=== PATIENT | male | born 1975 | race Caucasian/White ===

== ENCOUNTER 2017-02-20 19:48 | Emergency (ER) | payer OTHER ==
[~2017-02-20] VITALS: Ht 177.8 cm; Wt 117.9 kg
[~2017-02-20 19:48] MED LIST: AMOXICILLIN500 MG PO; CATAFLAM50 MG PO; CYCLOBENZAPRINE10 MG PO; FLONASE 0.05% 121 EA NAS; HYDROCODONE BIT1 T11 PO; KEFLEX500 MG PO; Motrin,Rufen800 MG PO; NKHM; NKHM PO; NYQUIL; VIBRAMYCIN100 MG PO
[2017-02-20 20:07] VITALS: BP 154/83
[2017-02-20] MEDS ORDERED: Orphenadrine C100 MG PO (22:19)
[2017-02-20] MEDS ORDERED: Motrin,Rufen800 MG PO (22:19)
[2017-02-20] MEDS ORDERED: NORCO 5-325 TA1 EACH PO (22:19)
== END 2017-02-20 22:32 | disposition home or self-care (01) ==
LOC: ED 19:48
DX: S01.312A Laceration without foreign body of left ear, initial encounter (principal); S01.01XA Laceration without foreign body of scalp, initial encounter; W55.12XA Struck by horse, initial encounter; Y93.89 Activity, other specified; Y92.89 Other specified places as the place of occurrence of the external cause; Y99.9 Unspecified external cause status

== ENCOUNTER 2017-02-28 16:46 | Emergency (ER) | payer OTHER ==
[~2017-02-28] VITALS: Wt 117.9 kg
[~2017-02-28 16:46] MED LIST changes: +NORCO 5-325 TA1 EACH PO; +Orphenadrine C100 MG PO
[2017-02-28 16:55] VITALS: BP 136/68
== END 2017-02-28 17:10 | disposition home or self-care (01) ==
LOC: ED 16:46
DX: S01.01XD Laceration without foreign body of scalp, subsequent encounter (principal); Z48.02 Encounter for removal of sutures; X58.XXXD Exposure to other specified factors, subsequent encounter; Y92.9 Unspecified place or not applicable; Y99.9 Unspecified external cause status

== ENCOUNTER 2017-03-07 11:32 | Inpatient (IN) | payer OTHER ==
[~2017-03-07] VITALS: Ht 175.2 cm; Wt 113.9 kg
--- NOTE | ~2017-03-07 | O ---
[place], [place] OPERATIVE NOTE NAME: THIERRY MONTEZ JR [facility] #: [id number] UNIT #: [id number] ROOM: [facility] DOCTOR: BOONE CLAY MD BIRTHDATE: [birth year] DOS: 03/08/2017 PREOPERATIVE DIAGNOSIS: Acute appendicitis. POSTOPERATIVE DIAGNOSIS: Acute appendicitis. PROCEDURE: Laparoscopic appendectomy. SURGEON: Boone Clay MD CRAP SHOOTER: PGY1. ANESTHESIA: General with endotracheal intubation. INDICATIONS: This is a 41-year-old gentleman who was admitted with a history of right lower quadrant abdominal pain, nausea, vomiting and diarrhea, who was found to have acute appendicitis with appendicolith on a CAT scan. It was decided to take the patient to the operating room for the above-mentioned procedure. The procedure and its complications were explained to the patient in detail preoperatively. Complications that were discussed included, but were not limited to bleeding, infection, hematoma/seroma/abscess formation, prolonged postoperative pain, damage to vital structures, incisional hernia formation. He agreed to proceed. DESCRIPTION OF PROCEDURE: After identifying the patient, the patient was brought to the operating suite and laid in the supine position. After induction of general anesthesia, timeout procedure was called and a Pacheco catheter was placed. The left upper extremity was stuck to the patient in size, the parts were then painted and draped in the usual sterile fashion. An incision inferior to the umbilicus was made. The previous scar for a laparoscopic cholecystectomy was reused to get access into the abdomen. The fascia was incised and 2 stay sutures were taken on either side with 0 Vicryl. The peritoneum was opened and a 12 mm Valerie port was introduced. The patient was then placed in a Trendelenburg right side up position. Under direct vision, a left lower quadrant incision of 10 mm in the suprapubic incision of 5 mm . was made and appropriate size ports were introduced. The appendix was found to be in the post-ileal retrocecal position and was surrounded by the inflammatory adhesions, which were taken down with blunt and sharp dissection. Thereafter, the tape of the appendix was held up with the help of an Endo-Napoleon forceps and the base of the appendix as well as mesoappendix was stapled across with the help of a JONN vascular stapler. The appendix was then placed in an EndoCatch bag and removed from the peritoneal cavity and sent for histopathological diagnosis. Thereafter, hemostasis was confirmed and the spilled blood was sucked away. Under direct vision, the suprapubic and the left lower quadrant ports were removed and there was no bleeding seen. The umbilical port was also removed and the stay sutures were tied together as well as another stitch with 0 Vicryl was taken to close the fascial defect. Thereafter, the subcutaneous tissue was irrigated and the skin edges were approximated with the help of 4-0 Vicryl after they were infiltrated with 1% plain lidocaine. A dressing was placed. The patient tolerated the procedure well. Pacheco catheter was removed. He was [place], [place] OPERATIVE NOTE NAME: TC THIERRY HERRERA UNIT #: [id number] ROOM: [facility] DOCTOR: BOONE CLAY MD BIRTHDATE: [birth year] extubated uneventfully and brought back to the recovery room in stable fashion. There were no complications. Dr. Boone Clay, the attending surgeon, was present throughout the operating case. Boone Clay MD CM:OPRECORD:OPERATIVE NOTE [id number] BOONE CLAY MD 03/08/17 1136 interface
[2017-03-07 11:37] VITALS: BP 130/80
[2017-03-07 12:23] LABS: BASO % 0.2 % (0.0-1.0); EOS # 0.1 10*3/uL (0.0-0.4); EOS % 0.7 % (1.0-4.0); HEMATOCRIT 43.9 % (42.0-52.0); HEMOGLOBIN 15.2 g/dl (14.0-18.0); LYMPH # 0.9 10*3/uL (1.3-4.4); LYMPH % 7.1 % (27.0-41.0); MEAN CELL VOLUME 82.4 fl (80.0-94.0); MEAN CORPUSCULAR HGB 28.5 pg (27.0-31.0); MEAN CORPUSCULAR HGB CONC 34.6 g/dl (33.0-37.0); MEAN PLATELET VOLUME 9.3 fl (9.6-12.3); MONO # 0.7 10*3/uL (0.1-1.0); MONO % 6.1 % (3.0-9.0); NEUT # 10.3 10*3/uL (2.3-7.9); NEUT % 85.6 % (47.0-73.0); PLATELET COUNT AUTOMATED 247 10*3/uL (130-400); RED BLOOD COUNT 5.33 10*6/uL (4.50-5.90); RED CELL DISTRI WIDTH 13.2 % (0-14.5)
[2017-03-07 12:40] LABS: ALBUMIN 3.7 gm/dl (3.1-4.5); ALKALINE PHOSPHATASE 95 U/L (45-117); BILIRUBIN, TOTAL 0.7 mg/dl (0.2-1.0); BUN 27 mg/dl (7-24); CARBON DIOXIDE 21 mmol/L (21-32); CHLORIDE 109 mmol/L (98-107); EST GLOM FILT AFRICAN AMERICAN > 60 ml/min; GLUCOSE 109 mg/dL (65-99); POTASSIUM 3.9 mmol/L (3.5-5.1); SGOT/AST 27 IU/L (3-35); SGPT/ALT 33 U/L (12-78); SODIUM 143 mmol/L (136-145); TOTAL PROTEIN 7.8 gm/dL (6.4-8.2)
[2017-03-07 17:25] VITALS: BP 120/60
[2017-03-07 20:00] VITALS: BP 114/52
[2017-03-08] VITALS (13 sets, daily range): BP systolic 90–132; BP diastolic 43–78
[2017-03-08 06:53] LABS: BASO % 0.6 % (0.0-1.0); EOS # 0.2 10*3/uL (0.0-0.4); EOS % 3.1 % (1.0-4.0); HEMATOCRIT 38.1 % (42.0-52.0); HEMOGLOBIN 13.2 g/dl (14.0-18.0); LYMPH # 1.2 10*3/uL (1.3-4.4); LYMPH % 24.1 % (27.0-41.0); MEAN CELL VOLUME 83.7 fl (80.0-94.0); MEAN CORPUSCULAR HGB CONC 34.6 g/dl (33.0-37.0); MEAN PLATELET VOLUME 8.9 fl (9.6-12.3); MONO # 0.7 10*3/uL (0.1-1.0); MONO % 12.8 % (3.0-9.0); NEUT % 59.2 % (47.0-73.0); PLATELET COUNT AUTOMATED 185 10*3/uL (130-400); RED BLOOD COUNT 4.55 10*6/uL (4.50-5.90); RED CELL DISTRI WIDTH 13.2 % (0-14.5); WHITE BLOOD COUNT 5.1 10*3/uL (4.8-10.8)
[2017-03-08 07:25] LABS: PROTHROMBIN TIME 10.5 SECONDS (9.0-12.4)
[2017-03-08 07:28] LABS: ALKALINE PHOSPHATASE 88 U/L (45-117); BILIRUBIN, TOTAL 0.8 mg/dl (0.2-1.0); BUN 20 mg/dl (7-24); CARBON DIOXIDE 26 mmol/L (21-32); CHLORIDE 112 mmol/L (98-107); CHOLESTEROL 63 mg/dL (<200); EST GLOM FILT AFRICAN AMERICAN > 60 ml/min; FREE T4 1.15 ng/dl (0.76-1.46); GLUCOSE 92 mg/dL (65-99); HDL CHOLESTEROL 35 mg/dl (40-60); LDL CHOLESTEROL 19 mg/dL (9-159); MAGNESIUM 2.2 mg/dL (1.5-2.1); PHOSPHOROUS 2.1 mg/dL (2.5-4.9); POTASSIUM 3.7 mmol/L (3.5-5.1); SGOT/AST 23 IU/L (3-35); SGPT/ALT 33 U/L (12-78); SODIUM 145 mmol/L (136-145); TOTAL PROTEIN 6.3 gm/dL (6.4-8.2); TRIGLYCERIDES 43 mg/dl (<150); VLDL CHOLESTEROL 9 mg/dL (6-40)
[2017-03-08 07:33] LABS: THYROID STIM HORMONE (HS) 0.713 uIU/ml (0.358-4.75)
[2017-03-08 09:55] LABS: FOLIC ACID 23.6 ng/mL (>5.38)
[2017-03-08 09:56] LABS: VITAMIN D, 25-HYDROXY 17.7 ng/mL (30-100)
[2017-03-09] VITALS: BP 115/51
[2017-03-09 06:31] LABS: BASO % 0.1 % (0.0-1.0); HEMOGLOBIN 12.8 g/dl (14.0-18.0); IG # 0.1 10*3/uL (0.0-0.1); LYMPH # 1.1 10*3/uL (1.3-4.4); LYMPH % 7.8 % (27.0-41.0); MEAN CELL VOLUME 83.1 fl (80.0-94.0); MEAN CORPUSCULAR HGB 28.8 pg (27.0-31.0); MEAN CORPUSCULAR HGB CONC 34.6 g/dl (33.0-37.0); MONO # 1.1 10*3/uL (0.1-1.0); MONO % 7.4 % (3.0-9.0); NEUT # 12.4 10*3/uL (2.3-7.9); NEUT % 84.2 % (47.0-73.0); PLATELET COUNT AUTOMATED 240 10*3/uL (130-400); RED BLOOD COUNT 4.45 10*6/uL (4.50-5.90); RED CELL DISTRI WIDTH 13.2 % (0-14.5); WHITE BLOOD COUNT 14.7 10*3/uL (4.8-10.8)
[2017-03-09 07:12] LABS: BUN 17 mg/dl (7-24); CARBON DIOXIDE 23 mmol/L (21-32); CHLORIDE 113 mmol/L (98-107); EST GLOM FILT AFRICAN AMERICAN > 60 ml/min; GLUCOSE 140 mg/dL (65-99); PHOSPHOROUS 1.6 mg/dL (2.5-4.9); POTASSIUM 3.8 mmol/L (3.5-5.1); SODIUM 146 mmol/L (136-145)
[2017-03-09 08:00] VITALS: BP 111/54
== END 2017-03-09 13:13 | disposition home or self-care (01) | DRG 342 ==
LOC: ED 11:32 → EDHOLD 15:43 → 5E 15:43
PROVIDERS: Internal Medicine; Registered Nurse
PROC: 0DTJ4ZZ Resection of Appendix, Percutaneous Endoscopic Approach (ICD-10-PCS; principal; 2017-03-08)
DX: K35.80 Unspecified acute appendicitis (principal); E44.0 Moderate protein-calorie malnutrition; E87.8 Other disorders of electrolyte and fluid balance, not elsewhere classified; E83.39 Other disorders of phosphorus metabolism; Z82.49 Family history of ischemic heart disease and other diseases of the circulatory system; D72.829 Elevated white blood cell count, unspecified; E66.9 Obesity, unspecified; Z68.39 Body mass index [BMI] 39.0-39.9, adult

== ENCOUNTER → 2017-03-20 | Outpatient (CLI) | payer OTHER ==
[2017-03-20 13:08] LABS: BILIRUBIN NEGATIVE (NEGATIVE); BLOOD NEGATIVE (NEGATIVE); CLARITY CLEAR (CLEAR); COLOR YELLOW (YELLOW); GLUCOSE NEGATIVE (NEGATIVE); KETONE NEGATIVE (NEGATIVE); LEUKO ESTERASE NEGATIVE (NEGATIVE); NITRITE NEGATIVE (NEGATIVE); PROTEIN NEGATIVE (NEGATIVE); SPECIFIC GRAVITY >= 1.030 (1.005-1.030); UROBILINOGEN 0.2 E.U./dl (0.2-1.0)
[2017-03-20 13:43] LABS: BACTERIA 2+; URINE REFLEX COMMENT YES (NO)
== END | disposition home or self-care (01) ==
LOC: LAB 12:35
PROVIDERS: Surgery
DX: R39.9 Unspecified symptoms and signs involving the genitourinary system (principal)

== ENCOUNTER 2017-09-19 08:16 | Emergency (ER) | payer OTHER ==
[~2017-09-19] VITALS: Ht 177.8 cm; Wt 117.9 kg
[2017-09-19 08:36] VITALS: BP 138/69
[2017-09-19 09:23] LABS: BASO # 0.1 10*3/uL (0.0-0.1); BASO % 0.8 % (0.0-1.0); EOS # 0.2 10*3/uL (0.0-0.4); EOS % 2.3 % (1.0-4.0); HEMATOCRIT 42.9 % (42.0-52.0); HEMOGLOBIN 14.8 g/dl (14.0-18.0); LYMPH # 1.6 10*3/uL (1.3-4.4); LYMPH % 22.6 % (27.0-41.0); MEAN CORPUSCULAR HGB 28.3 pg (27.0-31.0); MEAN CORPUSCULAR HGB CONC 34.5 g/dl (33.0-37.0); MONO # 0.5 10*3/uL (0.1-1.0); MONO % 7.4 % (3.0-9.0); NEUT # 4.7 10*3/uL (2.3-7.9); NEUT % 66.6 % (47.0-73.0); PLATELET COUNT AUTOMATED 249 10*3/uL (130-400); RED BLOOD COUNT 5.23 10*6/uL (4.50-5.90); RED CELL DISTRI WIDTH 13.5 % (0-14.5); WHITE BLOOD COUNT 7.1 10*3/uL (4.8-10.8)
[2017-09-19 09:38] LABS: ALBUMIN 3.6 gm/dl (3.1-4.5); ALKALINE PHOSPHATASE 99 U/L (45-117); BUN 25 mg/dl (7-24); CHLORIDE 109 mmol/L (98-107); CREATININE 0.93 mg/dL (0.70-1.30); LIPASE 185 U/L (73-393); SGOT/AST 16 IU/L (3-35); SGPT/ALT 30 U/L (12-78); SODIUM 140 mmol/L (136-145); TOTAL PROTEIN 7.6 gm/dL (6.4-8.2)
[2017-09-19] MEDS ORDERED: LOMOTIL 2.5-0.1 EACH PO (11:40)
== END 2017-09-19 12:01 | disposition home or self-care (01) ==
LOC: ED 08:16
PROVIDERS: Physician Assistant
DX: K42.9 Umbilical hernia without obstruction or gangrene (principal); R19.7 Diarrhea, unspecified

== ENCOUNTER → 2017-11-30 | Outpatient (CLI) | payer OTHER ==
[~2017-11-30] MED LIST changes: +LOMOTIL 2.5-0.1 EACH PO
== END | disposition home or self-care (01) ==
LOC: CT 10:23
DX: R10.2 Pelvic and perineal pain (principal)

== ENCOUNTER → 2017-12-14 | Outpatient (CLI) | payer OTHER ==
[2017-12-14 10:55] LABS: BASO % 0.7 % (0.0-1.0); EOS # 0.1 10*3/uL (0.0-0.4); EOS % 2.1 % (1.0-4.0); HEMATOCRIT 45.6 % (42.0-52.0); HEMOGLOBIN 15.6 g/dl (14.0-18.0); LYMPH # 1.6 10*3/uL (1.3-4.4); LYMPH % 27.6 % (27.0-41.0); MEAN CELL VOLUME 82.6 fl (80.0-94.0); MEAN CORPUSCULAR HGB 28.3 pg (27.0-31.0); MEAN CORPUSCULAR HGB CONC 34.2 g/dl (33.0-37.0); MEAN PLATELET VOLUME 9.4 fl (9.6-12.3); MONO # 0.6 10*3/uL (0.1-1.0); MONO % 10.7 % (3.0-9.0); NEUT # 3.4 10*3/uL (2.3-7.9); NEUT % 58.6 % (47.0-73.0); PLATELET COUNT AUTOMATED 271 10*3/uL (130-400); RED BLOOD COUNT 5.52 10*6/uL (4.50-5.90); RED CELL DISTRI WIDTH 13.2 % (0-14.5); WHITE BLOOD COUNT 5.7 10*3/uL (4.8-10.8)
[2017-12-14 10:56] LABS: BUN 19 mg/dl (7-24); CHLORIDE 109 mmol/L (98-107); SODIUM 141 mmol/L (136-145)
[2017-12-14 11:00] LABS: ACT PARTIAL THROMBO TIME 24.7 SECONDS (20.8-31.5); INTERNATIONAL NORM RATIO 0.9 (2.0-3.5)
== END | disposition home or self-care (01) ==
LOC: LAB 08:50
PROVIDERS: Surgery
DX: Z01.818 Encounter for other preprocedural examination (principal); K43.9 Ventral hernia without obstruction or gangrene

== ENCOUNTER → 2017-12-15 | Outpatient (CLI) | payer OTHER ==
[2017-12-15 14:49] LABS: BILIRUBIN NEGATIVE (NEGATIVE); BLOOD NEGATIVE (NEGATIVE); CLARITY CLOUDY (CLEAR); COLOR YELLOW (YELLOW); GLUCOSE NEGATIVE (NEGATIVE); KETONE NEGATIVE (NEGATIVE); LEUKO ESTERASE NEGATIVE (NEGATIVE); NITRITE NEGATIVE (NEGATIVE); SPECIFIC GRAVITY >= 1.030 (1.005-1.030); UROBILINOGEN 0.2 E.U./dl (0.2-1.0)
[2017-12-15 15:04] LABS: BACTERIA 4+
== END | disposition home or self-care (01) ==
LOC: LAB 14:25
PROVIDERS: Surgery
DX: K43.9 Ventral hernia without obstruction or gangrene (principal)

== ENCOUNTER → 2017-12-20 | Day surgery (SDC) | payer OTHER ==
[2017-12-14 09:25] VITALS: BP 124/80
[2017-12-20] VITALS (7 sets, daily range): BP systolic 110–120; BP diastolic 68–82
[~2017-12-20] VITALS: Ht 177.8 cm; Wt 115.7 kg
--- NOTE | ~2017-12-20 | O ---
[place], [place] OPERATIVE NOTE NAME: THIERRY MONTEZ JR UNIT #: [id number] ROOM: DOCTOR: BOONE CLAY MD BIRTHDATE: [birth year] DOS: 12/20/2017 PREOPERATIVE DIAGNOSIS: Ventral hernia. POSTOPERATIVE DIAGNOSIS: Ventral hernia. PROCEDURE: Ventral hernia repair (primary). SURGEON: Boone Clay MD DISH ROOM WORKER: DWAYNE. ANESTHESIA: General with endotracheal intubation. INDICATIONS: This is a 42-year-old gentleman who is here for a repair of a symptomatic ventral hernia. The procedure and its complications were explained to the patient in detail preoperatively. Complications that were discussed included but were not limited to bleeding, infection, hematoma/seroma/abscess formation, recurrence, prolonged postoperative pain and damage to lying vital structures. He agreed to proceed. DESCRIPTION OF PROCEDURE: After identifying the patient, the patient was brought to the operating suite and laid in the supine position. After a time-out procedure was called, the parts were painted and draped in the usual sterile fashion and this was done after the patient was intubated and anesthetized by the anesthesia team. The previous subumbilical incision was marked and extended on either side. An incision was made with the help of a knife and deepened in layers. The fascia was identified and was found to have a small defect, approximately 5 mm in diameter. This was cleaned all around with the help of electrocautery until clear fascial defect was visualized. At this point, decision was made to proceed with a primary repair, which was performed with the help of looped PDS with a single [id number] stitch. Thereafter, saline was used for irrigation and the subcutaneous tissue was approximated with the help of 3-0 Vicryl in a running fashion and the skin edges were approximated with the help of 4-0 Vicryl after it was injected with 1% plain lidocaine with the help of 4-0 Vicryl subcuticular sutures. Dressing was placed. The patient tolerated the procedure well and was extubated uneventfully. Dr. Boone Clay, the attending surgeon, was present throughout the operating case. [place], [place] OPERATIVE NOTE NAME: THIERRY MONTEZ JR UNIT #: [id number] ROOM: DOCTOR: BOONE CLAY MD BIRTHDATE: [birth year] Boone Clay MD CM:EDEORD:OPERATIVE NOTE 8 0 BOONE CLAY MD 12/20/17 0919 interface
== END ==
LOC: SDC 12-14 09:30
DX: K43.9 Ventral hernia without obstruction or gangrene (principal); K21.9 Gastro-esophageal reflux disease without esophagitis; F32.9 Major depressive disorder, single episode, unspecified; Z98.890 Other specified postprocedural states

== ENCOUNTER 2018-12-08 10:55 | Emergency (ER) | payer OTHER ==
[~2018-12-08] VITALS: Ht 177.8 cm; Wt 104.3 kg
[2018-12-08 10:56] VITALS: BP 110/59
[2018-12-08] MEDS ORDERED: FLONASE ALLERG9.9 ML NAS (12:47)
[2018-12-08] MEDS ORDERED: AMOXICILLIN500 M2 PO (12:47)
== END 2018-12-08 12:56 | disposition home or self-care (01) ==
LOC: ED 10:55
DX: H66.92 Otitis media, unspecified, left ear (principal); J02.9 Acute pharyngitis, unspecified; R09.81 Nasal congestion

== ENCOUNTER 2020-06-07 11:17 | Emergency (ER) | payer OTHER ==
[~2020-06-07 11:17] MED LIST changes: +AMOXICILLIN500 M2 PO; +FLONASE ALLERG9.9 ML NAS
[2020-06-07 11:24] VITALS: BP 126/78
[2020-06-07 11:47] LABS: BASO % 0.7 % (0.0-1.0); EOS # 0.1 10*3/uL (0.0-0.4); HEMATOCRIT 46.6 % (42.0-52.0); LYMPH # 1.6 10*3/uL (1.3-4.4); LYMPH % 26.8 % (27.0-41.0); MEAN CELL VOLUME 82.2 fl (80.0-94.0); MEAN CORPUSCULAR HGB 28.4 pg (27.0-31.0); MEAN CORPUSCULAR HGB CONC 34.5 g/dl (33.0-37.0); MEAN PLATELET VOLUME 9.2 fl (9.6-12.3); MONO # 0.5 10*3/uL (0.1-1.0); NEUT # 3.8 10*3/uL (2.3-7.9); PLATELET COUNT AUTOMATED 267 10*3/uL (130-400); RED BLOOD COUNT 5.67 10*6/uL (4.50-5.90); RED CELL DISTRI WIDTH 12.9 % (0-14.5); WHITE BLOOD COUNT 6.1 10*3/uL (4.8-10.8)
[2020-06-07 12:05] LABS: ALBUMIN 3.8 gm/dl (3.1-4.5); ALKALINE PHOSPHATASE 97 U/L (45-117); BUN 23 mg/dl (7-24); CHLORIDE 108 mmol/L (98-107); CREATININE 1.05 mg/dL (0.70-1.30); LIPASE 150 U/L (73-393); POTASSIUM 4.1 mmol/L (3.5-5.1); SGOT/AST 18 IU/L (3-35); SGPT/ALT 41 U/L (12-78); SODIUM 136 mmol/L (136-145); TOTAL PROTEIN 8.2 gm/dL (6.4-8.2)
[2020-06-07 12:23] LABS: BILIRUBIN NEGATIVE (NEGATIVE); BLOOD NEGATIVE (NEGATIVE); CLARITY CLEAR (CLEAR); COLOR YELLOW (YELLOW); GLUCOSE NEGATIVE (NEGATIVE); KETONE NEGATIVE (NEGATIVE); SPECIFIC GRAVITY 1.025 (1.005-1.030)
[2020-06-07 12:24] LABS: LEUKO ESTERASE NEGATIVE (NEGATIVE); NITRITE NEGATIVE (NEGATIVE); UROBILINOGEN 0.2 E.U./dl (0.2-1.0)
[2020-06-07 12:25] LABS: EPITHELIAL CELLS 0-2; WBC 0-2 wbc/hpf (0-5)
[2020-06-07] MEDS ORDERED: DICYCLOMINE HCL20 MG PO (13:41)
== END 2020-06-07 13:50 | disposition home or self-care (01) ==
LOC: ED 11:17
PROVIDERS: Nurse Practitioner Family
DX: R10.32 Left lower quadrant pain (principal); R19.7 Diarrhea, unspecified; K21.9 Gastro-esophageal reflux disease without esophagitis

== ENCOUNTER 2020-10-17 15:25 | Emergency (ER) | payer OTHER ==
[~2020-10-17] VITALS: Ht 175.2 cm; Wt 130.2 kg
[~2020-10-17 15:25] MED LIST changes: +DICYCLOMINE HCL20 MG PO
[2020-10-17 15:53] VITALS: BP 137/83
[2020-10-17] MEDS ORDERED: VISTARIL50 MG PO (16:33)
[2020-10-17] MEDS ORDERED: PREDNISONE50 MG PO (16:33)
== END 2020-10-17 16:41 | disposition home or self-care (01) ==
LOC: ED 15:25
DX: L25.9 Unspecified contact dermatitis, unspecified cause (principal); E66.9 Obesity, unspecified; F17.200 Nicotine dependence, unspecified, uncomplicated

== ENCOUNTER → 2020-12-30 | Outpatient (CLI) | payer OTHER ==
[~2020-12-30] MED LIST changes: +PREDNISONE50 MG PO; +VISTARIL50 MG PO
== END | disposition home or self-care (01) ==
LOC: CARD 00:04
PROVIDERS: ATTEND Internal Medicine
DX: I51.7 Cardiomegaly (principal)

== ENCOUNTER 2021-07-08 11:19 | Emergency (ER) | payer OTHER | END 2021-07-08 21:39 | disposition left against medical advice (07) | LOC: ED 11:19 | DX: J00 Acute nasopharyngitis [common cold] (principal); Z53.21 Procedure and treatment not carried out due to patient leaving prior to being seen by health care provider ==

== ENCOUNTER 2021-07-13 13:24 | Emergency (ER) | payer OTHER ==
[~2021-07-13] VITALS: Ht 175.2 cm; Wt 130.2 kg
[2021-07-13 13:32] VITALS: BP 135/68
== END 2021-07-13 17:00 | disposition left against medical advice (07) ==
LOC: ED 13:24
DX: R05 Cough (principal); R09.89 Other specified symptoms and signs involving the circulatory and respiratory systems; R09.81 Nasal congestion; Z53.21 Procedure and treatment not carried out due to patient leaving prior to being seen by health care provider

== ENCOUNTER 2021-12-26 09:16 | Emergency (ER) | payer OTHER ==
[~2021-12-26] VITALS: Ht 175.2 cm; Wt 127.0 kg
[2021-12-26 09:23] VITALS: BP 134/92
[2021-12-26 10:42] LABS: BASO % 0.3 % (0.0-1.0); EOS # 0.2 10*3/uL (0.0-0.4); EOS % 1.8 % (1.0-4.0); HEMATOCRIT 49.3 % (42.0-52.0); LYMPH # 0.8 10*3/uL (1.3-4.4); LYMPH % 8.3 % (27.0-41.0); MEAN CELL VOLUME 82.2 fl (80.0-94.0); MEAN CORPUSCULAR HGB 28.2 pg (27.0-31.0); MEAN CORPUSCULAR HGB CONC 34.3 g/dl (33.0-37.0); MEAN PLATELET VOLUME 8.9 fl (9.6-12.3); MONO # 0.8 10*3/uL (0.1-1.0); MONO % 8.1 % (3.0-9.0); NEUT # 7.6 10*3/uL (2.3-7.9); NEUT % 81.3 % (47.0-73.0); PLATELET COUNT AUTOMATED 260 10*3/uL (130-400); RED CELL DISTRI WIDTH 13.2 % (0-14.5); WHITE BLOOD COUNT 9.4 10*3/uL (4.8-10.8)
[2021-12-26 11:03] LABS: ALKALINE PHOSPHATASE 96 U/L (45-117); BUN 27 mg/dl (7-24); CHLORIDE 109 mmol/L (98-107); LIPASE 106 U/L (73-393); SGOT/AST 16 IU/L (3-35); SGPT/ALT 34 U/L (12-78); SODIUM 138 mmol/L (136-145); TOTAL PROTEIN 8.2 gm/dL (6.4-8.2)
[2021-12-26 13:17] LABS: BILIRUBIN Negative (Negative); BLOOD Negative (Negative); CLARITY Clear (Clear); COLOR Yellow (Yellow); GLUCOSE Negative (Negative); KETONE Negative (Negative); LEUKO ESTERASE Negative (Negative); NITRITE Negative (Negative); SPECIFIC GRAVITY >= 1.030 (1.001-1.030)
[2021-12-26 13:31] LABS: EPITHELIAL CELLS 0-2; RBC 0-2 rbc/hpf (0-2)
[2021-12-26] MEDS ORDERED: PHENERGAN25 M3 PO (13:51)
== END 2021-12-26 14:00 | disposition home or self-care (01) ==
LOC: ED 09:16
PROVIDERS: Emergency Medicine
DX: K52.9 Noninfective gastroenteritis and colitis, unspecified (principal); Z90.49 Acquired absence of other specified parts of digestive tract; Z98.890 Other specified postprocedural states

== ENCOUNTER → 2022-02-06 | Outpatient (CLI) | payer OTHER ==
[~2022-02-06] MED LIST changes: +PHENERGAN25 M3 PO
== END | disposition home or self-care (01) ==
LOC: LAB 10:11
PROVIDERS: ATTEND Family Medicine
DX: R79.89 Other specified abnormal findings of blood chemistry (principal); R53.83 Other fatigue

== ENCOUNTER 2022-08-22 06:49 | Emergency (ER) | payer OTHER ==
[~2022-08-22] VITALS: Wt 129.3 kg
[2022-08-22 07:15] VITALS: BP 134/84
[2022-08-22] MEDS ORDERED: NAPROXEN250 MG PO (08:15)
[2022-08-22] MEDS ORDERED: TYLENOL325 M1 PO (08:15)
[2022-08-22] MEDS ORDERED: MUCINEX DM 30/61 TAB PO (08:15)
== END 2022-08-22 08:44 | disposition home or self-care (01) ==
LOC: ED 06:49
DX: J06.9 Acute upper respiratory infection, unspecified (principal); Z20.822 Contact with and (suspected) exposure to COVID-19; Z90.49 Acquired absence of other specified parts of digestive tract; Z98.890 Other specified postprocedural states

== ENCOUNTER 2023-03-30 14:27 | Emergency (ER) | payer OTHER ==
[~2023-03-30] VITALS: Wt 117.9 kg
[~2023-03-30 14:27] MED LIST changes: +MUCINEX DM 30/61 TAB PO; +NAPROXEN250 MG PO; +TYLENOL325 M1 PO
[2023-03-30 14:33] VITALS: BP 132/72
== END 2023-03-30 16:52 | disposition left against medical advice (07) ==
LOC: ED 14:27
DX: R07.89 Other chest pain (principal); Z53.21 Procedure and treatment not carried out due to patient leaving prior to being seen by health care provider

== ENCOUNTER → 2023-08-22 | Outpatient (CLI) | payer OTHER | END | disposition home or self-care (01) | LOC: LAB 09:52 | PROVIDERS: ATTEND Family Medicine | DX: R79.89 Other specified abnormal findings of blood chemistry (principal); R53.83 Other fatigue ==

== ENCOUNTER → 2023-09-03 | Outpatient (CLI) | payer OTHER ==
[2023-09-03 10:34] LABS: BASO # 0.1 10*3/uL (0.0-0.1); BASO % 0.4 % (0.0-1.0); EOS % 0.1 % (1.0-4.0); HEMATOCRIT 49.2 % (42.0-52.0); LYMPH # 1.2 10*3/uL (1.3-4.4); LYMPH % 9.5 % (27.0-41.0); MEAN CORPUSCULAR HGB 28.7 pg (27.0-31.0); MEAN CORPUSCULAR HGB CONC 34.1 g/dl (33.0-37.0); MEAN PLATELET VOLUME 8.6 fl (9.6-12.3); MONO # 0.4 10*3/uL (0.1-1.0); MONO % 2.9 % (3.0-9.0); NEUT # 10.9 10*3/uL (2.3-7.9); NEUT % 86.2 % (47.0-73.0); PLATELET COUNT AUTOMATED 299 10*3/uL (130-400); RED BLOOD COUNT 5.86 10*6/uL (4.50-5.90); RED CELL DISTRI WIDTH 13.6 % (0-14.5); WHITE BLOOD COUNT 12.6 10*3/uL (4.8-10.8)
[2023-09-03 11:14] LABS: ALKALINE PHOSPHATASE 87 U/L (46-116); BUN 22 mg/dl (9-23); CHLORIDE 107 mmol/L (98-107); CHOLESTEROL 133 mg/dL (<200); LDL CHOLESTEROL 74 mg/dL (9-159); POTASSIUM 4.2 mmol/L (3.4-5.1); SGPT/ALT 21 U/L (5-49); TOTAL PROTEIN 8.3 gm/dL (6.0-8.0); TRIGLYCERIDES 40 mg/dl (<150)
[2023-09-04 19:05] LABS: HEPATITIS C QNT HCV Not Detected IU/mL (.)
== END | disposition home or self-care (01) ==
LOC: LAB 10:07
PROVIDERS: ATTEND Nurse Practitioner Primary Care
DX: E55.9 Vitamin D deficiency, unspecified (principal); M54.41 Lumbago with sciatica, right side; G89.29 Other chronic pain; R05.2 Subacute cough; R06.02 Shortness of breath; Z86.19 Personal history of other infectious and parasitic diseases

== ENCOUNTER → 2023-09-18 | Outpatient (CLI) | payer OTHER | END | disposition home or self-care (01) | LOC: WOUNDCARE 00:22 | PROVIDERS: ATTEND Nurse Practitioner Family | DX: T25.222A Burn of second degree of left foot, initial encounter (principal); T25.212A Burn of second degree of left ankle, initial encounter; L98.9 Disorder of the skin and subcutaneous tissue, unspecified; G89.29 Other chronic pain; K21.9 Gastro-esophageal reflux disease without esophagitis; Z90.49 Acquired absence of other specified parts of digestive tract; X08.8XXA Exposure to other specified smoke, fire and flames, initial encounter; Y93.89 Activity, other specified; Y92.89 Other specified places as the place of occurrence of the external cause; Y99.8 Other external cause status ==

== ENCOUNTER → 2023-09-25 | Outpatient (CLI) | payer OTHER | END | disposition home or self-care (01) | LOC: WOUNDCARE 00:50 | PROVIDERS: ATTEND Nurse Practitioner Family | DX: T25.212D Burn of second degree of left ankle, subsequent encounter (principal); T25.222D Burn of second degree of left foot, subsequent encounter; T31.0 Burns involving less than 10% of body surface; L98.9 Disorder of the skin and subcutaneous tissue, unspecified; G89.29 Other chronic pain; K21.9 Gastro-esophageal reflux disease without esophagitis; Z90.49 Acquired absence of other specified parts of digestive tract; X08.8XXD Exposure to other specified smoke, fire and flames, subsequent encounter ==

== ENCOUNTER → 2023-10-12 | Outpatient (CLI) | payer OTHER | END | disposition home or self-care (01) | LOC: WOUNDCARE 03:01 | PROVIDERS: ATTEND Nurse Practitioner Family | DX: T25.222D Burn of second degree of left foot, subsequent encounter (principal); T25.212D Burn of second degree of left ankle, subsequent encounter; T31.0 Burns involving less than 10% of body surface; L98.9 Disorder of the skin and subcutaneous tissue, unspecified; G89.29 Other chronic pain; K21.9 Gastro-esophageal reflux disease without esophagitis; Z90.49 Acquired absence of other specified parts of digestive tract; X08.8XXD Exposure to other specified smoke, fire and flames, subsequent encounter ==

== ENCOUNTER → 2023-10-13 | Outpatient (CLI) | payer OTHER ==
[2023-10-13 09:38] LABS: BASO # 0.1 10*3/uL (0.0-0.1); BASO % 0.9 % (0.0-1.0); EOS # 0.2 10*3/uL (0.0-0.4); EOS % 3.2 % (1.0-4.0); HEMATOCRIT 46.6 % (42.0-52.0); LYMPH # 1.8 10*3/uL (1.3-4.4); LYMPH % 27.3 % (27.0-41.0); MEAN CELL VOLUME 84.1 fl (80.0-94.0); MEAN CORPUSCULAR HGB 28.3 pg (27.0-31.0); MEAN CORPUSCULAR HGB CONC 33.7 g/dl (33.0-37.0); MEAN PLATELET VOLUME 8.9 fl (9.6-12.3); MONO # 0.6 10*3/uL (0.1-1.0); MONO % 8.9 % (3.0-9.0); NEUT # 3.9 10*3/uL (2.3-7.9); NEUT % 59.5 % (47.0-73.0); PLATELET COUNT AUTOMATED 282 10*3/uL (130-400); RED BLOOD COUNT 5.54 10*6/uL (4.50-5.90); RED CELL DISTRI WIDTH 12.9 % (0-14.5); WHITE BLOOD COUNT 6.6 10*3/uL (4.8-10.8)
== END | disposition home or self-care (01) ==
LOC: LAB 09:13
PROVIDERS: ATTEND Nurse Practitioner Primary Care
DX: D72.829 Elevated white blood cell count, unspecified (principal)

== ENCOUNTER → 2023-10-26 | Outpatient (CLI) | payer OTHER | END | disposition home or self-care (01) | LOC: WOUNDCARE 03:29 | PROVIDERS: ATTEND Nurse Practitioner Family | DX: T25.222D Burn of second degree of left foot, subsequent encounter (principal); T25.212D Burn of second degree of left ankle, subsequent encounter; T25.211D Burn of second degree of right ankle, subsequent encounter; T31.0 Burns involving less than 10% of body surface; B19.20 Unspecified viral hepatitis C without hepatic coma; G89.29 Other chronic pain; K21.9 Gastro-esophageal reflux disease without esophagitis; Z90.49 Acquired absence of other specified parts of digestive tract; X08.8XXD Exposure to other specified smoke, fire and flames, subsequent encounter ==

== ENCOUNTER → 2023-11-09 | Outpatient (CLI) | payer OTHER | END | disposition home or self-care (01) | LOC: WOUNDCARE 04:17 | PROVIDERS: ATTEND Nurse Practitioner Family | DX: T25.212D Burn of second degree of left ankle, subsequent encounter (principal); T25.211D Burn of second degree of right ankle, subsequent encounter; T25.222D Burn of second degree of left foot, subsequent encounter; T25.221D Burn of second degree of right foot, subsequent encounter; T31.0 Burns involving less than 10% of body surface; B19.20 Unspecified viral hepatitis C without hepatic coma; G89.29 Other chronic pain; K21.9 Gastro-esophageal reflux disease without esophagitis; Z90.49 Acquired absence of other specified parts of digestive tract; X18 Contact with other hot metals ==

== ENCOUNTER → 2023-11-23 | Outpatient (CLI) | payer OTHER | END | disposition home or self-care (01) | LOC: WOUNDCARE 01:03 | PROVIDERS: ATTEND Nurse Practitioner Family | DX: T25.212D Burn of second degree of left ankle, subsequent encounter (principal); T25.222D Burn of second degree of left foot, subsequent encounter; T25.211D Burn of second degree of right ankle, subsequent encounter; T31.0 Burns involving less than 10% of body surface; L98.9 Disorder of the skin and subcutaneous tissue, unspecified; B19.20 Unspecified viral hepatitis C without hepatic coma; G89.29 Other chronic pain; K21.00 Gastro-esophageal reflux disease with esophagitis, without bleeding; Z04.9 Encounter for examination and observation for unspecified reason; X08.8XXD Exposure to other specified smoke, fire and flames, subsequent encounter ==

== ENCOUNTER → 2025-06-12 | Outpatient (CLI) | payer OTHER | END | disposition home or self-care (01) | LOC: RAD 08:36 | PROVIDERS: ATTEND Nurse Practitioner Primary Care | DX: M47.816 Spondylosis without myelopathy or radiculopathy, lumbar region (principal); M48.061 Spinal stenosis, lumbar region without neurogenic claudication; M54.51 Vertebrogenic low back pain; M25.511 Pain in right shoulder; M25.78 Osteophyte, vertebrae ==

== ENCOUNTER → 2025-10-13 | Outpatient (CLI) | payer MEDICAID ==
[2025-10-13 11:45] LABS: LDL CHOLESTEROL 45 mg/dL (9-159)
== END | disposition home or self-care (01) ==
LOC: LAB 09:15
PROVIDERS: ATTEND Nurse Practitioner Primary Care
DX: E53.8 Deficiency of other specified B group vitamins (principal); Z12.5 Encounter for screening for malignant neoplasm of prostate; E66.01 Morbid (severe) obesity due to excess calories; W57.XXXA Bitten or stung by nonvenomous insect and other nonvenomous arthropods, initial encounter; Y93.89 Activity, other specified; Y92.89 Other specified places as the place of occurrence of the external cause; Y99.8 Other external cause status